=== PATIENT | male | born 1970 | race Caucasian/White ===

== ENCOUNTER 2016-09-01 10:30 | Emergency (ER) | payer BC ==
[2016-09-01 11:16] VITALS: BP 127/85
--- NOTE | 2016-09-01 12:56 | UC ---
Lower Extremity/Ankle HPI - HPI Summary HPI Summary: right ankle pain and foot pain x 4 days. Hx gout. Feels like it is the same. No injury. Tried ibuprofen with some relief. - History of Current Complaint Chief Complaint: UCLowerExtremity Stated Complaint: RIGHT ANKLE PAIN Time Seen by Provider: 09/01/16 12:54 Hx Obtained From: Patient Onset/Duration: Sudden Onset, Lasting Days, Still Present Severity Initially: Moderate Severity Currently: Moderate Pain Intensity: 8 Pain Scale Used: 0-10 Numeric Aggravating Factor(s): Standing, Ambulation Alleviating Factor(s): Nothing Able to Bear Weight: Yes - painful, using a cane Related History: Other - gout - Allergies/Home Medications Allergies/Adverse Reactions: Allergies Allergy/AdvReac Type Severity Reaction Status Date / Time No Known Allergies Allergy Verified 09/01/16 11:12 PMH/Surg Hx/FS Hx/Imm Hx Previously Healthy: No - gout Endocrine History Of: Reports: Dyslipidemia - Surgical History Surgical History: None - Family History Known Family History: Positive: Other - gout - Social History Occupation: Unemployed - applying for jobs Alcohol Use: None Substance Use Type: None Smoking Status (MU): Never Smoked Tobacco - Immunization History Most Recent Influenza Vaccination: March 2016 Review of Systems Constitutional: Negative Skin: Negative Eyes: Negative ENT: Negative Respiratory: Negative Cardiovascular: Negative Gastrointestinal: Negative Genitourinary: Negative Motor: Negative Neurovascular: Negative Musculoskeletal: Arthralgia Neurological: Negative Psychological: Negative All Other Systems Reviewed And Are Negative: Yes Physical Exam Triage Information Reviewed: Yes Appearance: Well-Appearing, Pain Distress, Obese Vital Signs: Initial Vital Signs Temp 98.8 F 09/01/16 11:09 Pulse 72 09/01/16 11:09 Resp 16 09/01/16 11:09 BP 127/85 09/01/16 11:09 Pulse Ox 98 09/01/16 11:09 Vital Signs Reviewed: Yes Eyes: Positive: Conjunctiva Clear ENT: Positive: Normal ENT inspection Neck: Positive: Supple, Nontender Respiratory: Positive: Chest non-tender, Lungs clear, Normal breath sounds, No respiratory distress Cardiovascular: Positive: RRR, No Murmur, Pulses Normal, Brisk Capillary Refill Musculoskeletal: Positive: Strength Intact, ROM Intact Neurological Exam: Normal Psychological Exam: Normal Skin Exam: Normal Lower Extremity Course/Dx - Course Course Of Treatment: will treat as gout. No need for xray. pt is agreeable. - Differential Dx/Diagnosis Differential Diagnosis/HQI/PQRI: Contusion, Fracture (Closed), Gout, Sprain, Strain Provider Diagnoses: acute gout right foot Discharge - Discharge Plan Condition: Stable Disposition: HOME Prescriptions: HYDROcodone/ACETAMIN 5-325 MG* [[place] 5-325 TAB*] 1 tab PO Q6H PRN #12 tab MDD 4 PRN Reason: Pain Indomethacin CAP* [Indocin CAP*] 50 mg PO TID PRN #30 cap PRN Reason: Pain Patient Education Materials: Gout (ED) Forms: *Gen. Provider Communication Referrals: Safia Vang MD [Primary Care Provider] -
== END 2016-09-01 13:14 | disposition home or self-care (01) ==
LOC: UCCORT 10:30
DX: M10.071 Idiopathic gout, right ankle and foot (principal); E78.5 Hyperlipidemia, unspecified; E66.9 Obesity, unspecified; Z68.32 Body mass index [BMI] 32.0-32.9, adult
CPT/HCPCS: 99212; G0463

== ENCOUNTER 2017-06-13 09:29 | Emergency (ER) | payer BC, OTHER ==
[2017-06-13 09:39] VITALS: BP 131/74
--- NOTE | 2017-06-13 09:58 | UC ---
Respiratory Complaint HPI - HPI Summary HPI Summary: one week of cough and nasal congestion - History of Current Complaint Chief Complaint: UCRespiratory Stated Complaint: COUGH Time Seen by Provider: 06/13/17 09:52 Hx Obtained From: Patient Onset/Duration: Sudden Onset, Lasting Days - 7-8 days, Still Present, Worse Since - getting worse daily Timing: Constant Severity Initially: Mild Severity Currently: Moderate Character: Cough: Productive Alleviating Factors: Nothing Associated Signs And Symptoms: Positive: Pleuritic Chest Pain, Nasal Congestion - Allergies/Home Medications Allergies/Adverse Reactions: Allergies Allergy/AdvReac Type Severity Reaction Status Date / Time No Known Allergies Allergy Verified 06/13/17 09:39 PMH/Surg Hx/FS Hx/Imm Hx Previously Healthy: No Endocrine History: Dyslipidemia - Surgical History Surgical History: None - Family History Known Family History: Positive: None, Other - gout - Social History 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[employer] Lives: With Family Alcohol Use: None Substance Use Type: None Smoking Status (MU): Never Smoked Tobacco - Immunization History Most Recent Influenza Vaccination: March 2016 Review of Systems Constitutional: Negative Skin: Negative Eyes: Negative ENT: Nasal Discharge, Sinus Congestion Respiratory: Cough Cardiovascular: Negative Gastrointestinal: Negative Genitourinary: Negative Motor: Negative Neurovascular: Negative Musculoskeletal: Negative Neurological: Negative Psychological: Negative Is Patient Immunocompromised?: No All Other Systems Reviewed And Are Negative: Yes Physical Exam Triage Information Reviewed: Yes Appearance: Well-Appearing, No Pain Distress, Well-Nourished Vital Signs: Initial Vital Signs Temp 98.1 F 06/13/17 09:35 Pulse 51 06/13/17 09:35 Resp 16 06/13/17 09:35 BP 131/74 06/13/17 09:35 Pulse Ox 100 06/13/17 09:35 Vital Signs Reviewed: Yes Eye Exam: Normal Eyes: Positive: Conjunctiva Clear ENT Exam: Normal ENT: Positive: Normal ENT inspection, Hearing grossly normal, Pharynx normal, Nasal congestion, Nasal drainage, TMs normal, Uvula midline. Negative: Tonsillar swelling, Tonsillar exudate, Trismus, Muffled voice, Hoarse voice, Dental tenderness, Sinus tenderness Dental Exam: Normal Neck exam: Normal Neck: Positive: Supple, Nontender, No Lymphadenopathy Respiratory Exam: Normal Respiratory: Positive: Chest non-tender, Lungs clear, Normal breath sounds, No respiratory distress Cardiovascular Exam: Normal Cardiovascular: Positive: RRR, No Murmur, Pulses Normal, Brisk Capillary Refill Musculoskeletal Exam: Normal Musculoskeletal: Positive: Strength Intact, ROM Intact, No Edema Neurological Exam: Normal Neurological: Positive: Alert, Muscle Tone Normal Psychological Exam: Normal Skin Exam: Normal UC Diagnostic Evaluation - Laboratory O2 Sat by Pulse Oximetry: 100 Respiratory Course/Dx - Course Course Of Treatment: Zithromax, albuterol, increase fluids, follow with pcp - Differential Dx/Diagnosis Provider Diagnoses: Acute cough, Bronchitis Discharge - Discharge Plan Condition: Stable Disposition: HOME Prescriptions: Albuterol HFA INHALER* [Ventolin HFA Inhaler*] 2 puff INH Q4H PRN #1 mdi PRN Reason: cough Azithromycin TAB* [Zithromax TAB (Z-MUMTAZ) 250 mg #6 tabs] 2 tab PO .TODAY, THEN 1 DAILY #1 mumtaz Patient Education Materials: Cold Symptoms (ED), Acute Cough (ED) Referrals: Safia Vang MD [Primary Care Provider] - If Needed
== END 2017-06-13 10:09 | disposition home or self-care (01) ==
LOC: UCCORT 09:29
DX: J20.9 Acute bronchitis, unspecified (principal); E78.5 Hyperlipidemia, unspecified; R05 Cough
CPT/HCPCS: 99212; G0463

== ENCOUNTER 2017-09-25 15:25 | Emergency (ER) | payer OTHER ==
[2017-09-25 16:43] VITALS: BP 128/70
--- NOTE | 2017-09-25 17:00 | UC ---
General HPI - HPI Summary HPI Summary: Pt presents to with2 complaints 1) left pain at base of thumb and lateral wrist. Pt states started Monday, increased Sun. Worse with movement. No edema, warmth, swelling. Pt took APAP yesterday with improvement. no analgesia today. no paresthesia, weakness. Pt RHD 2) lumbar discomfort Worse with movement, palpation. no paresthesia to legs. No changes bowel/bladder. Pt states sx started after shoveling snow. no analgesia today Pt's medications reviewed this visit - History of Current Complaint Chief Complaint: UCUpperExtremity Stated Complaint: RT HAND COMPLAINT, LOWER BACK PAIN Time Seen by Provider: 09/25/17 16:57 Onset/Duration: Gradual Onset Onset Severity: Mild Current Severity: Moderate Pain Intensity: 5 - Allergy/Home Medications Allergies/Adverse Reactions: Allergies Allergy/AdvReac Type Severity Reaction Status Date / Time No Known Allergies Allergy Verified 09/25/17 16:35 PMH/Surg Hx/FS Hx/Imm Hx Previously Healthy: Yes - Surgical History Surgical History: None - Family History Known Family History: Positive: None, Other - gout - Social History Occupation: Employed Full-time Lives: With Family Alcohol Use: Rare Substance Use Type: None Smoking Status (MU): Never Smoked Tobacco - Immunization History Most Recent Influenza Vaccination: March 2016 Review of Systems Motor: Other - lumbar back pain Musculoskeletal: Other: - right thumb, lumbar pain Neurological: Negative All Other Systems Reviewed And Are Negative: Yes Physical Exam Triage Information Reviewed: Yes Appearance: Well-Appearing, No Pain Distress, Well-Nourished Vital Signs: Initial Vital Signs Temp 98.6 F 09/25/17 16:37 Pulse 64 09/25/17 16:37 Resp 18 09/25/17 16:37 BP 128/70 09/25/17 16:37 Pulse Ox 99 09/25/17 16:37 Vital Signs Reviewed: Yes Eye Exam: Normal Eyes: Positive: Conjunctiva Clear ENT Exam: Normal ENT: Positive: Normal ENT inspection, Hearing grossly normal Neck exam: Normal Neck: Positive: Supple, Nontender, No Lymphadenopathy Respiratory Exam: Normal Respiratory: Positive: Chest non-tender, Lungs clear, Normal breath sounds, No respiratory distress, No accessory muscle use Cardiovascular Exam: Normal Cardiovascular: Positive: RRR, No Murmur Abdominal Exam: Normal Abdomen Description: Positive: Nontender, No Organomegaly, Soft Musculoskeletal: Positive: Other: - no pain c/t/l/s Full AROM c spine mild paraspinal pain lower lumbar area R>L + SLE b/l + flex/ext knee, ankle + great toe extension + flex/ext elbow + pronate/supinate mild discomfort base thumb no crepitus + flex/ext wrist Neurological: Positive: Other: - + thumb up, a ok, finger spreak, finger cross 5 /5 grasp Diagnostics - Radiology No standard instances Radiology Interpretation Completed By: Radiologist - Patient Name: GWENDOLYN MCGEE Medical Record#: [id number] Ordering Physician: Brittani Zepeda MD Acct.#: [id number] : 1970 Age: 46 Sex: M Location: [facility] Exam Date: 09/25/171704 ADM Status: REG ER Order Information: WRIST LEFT 3+ VWS Accession Number: [id number] CPT: 40219 Indication: Left thumb pain 3 views of the wrist demonstrates no fracture. No other bone or joint abnormality is identified. IMPRESSION: NO FRACTURE OF THE WRIST IS NOTED. <Electronically signed by Sherie Clark MD in OV> 09/25/171738 Dictated By: Sherie Clark MD Dictated Date/Time: 09/25/171738 Re-Evaluation - Re-Evaluation First Eval Comment: reviewed imaging with pt. splint for comfort. heat to back with stretching exercises. motrin.apap. pcp f/u Course/Dx - Course Course Of Treatment: pt with left wrist pain at abse of thumb and lumbar area after shoveling now. Pt neurologically intact. suspect related to exertion. Will check imaging thumb. motrin. heat. stretch. pcp f/u - Differential Dx - Multi-Symptom Provider Diagnoses: hand sprain. lumbar sprain Discharge - Discharge Plan Condition: Stable Disposition: HOME Patient Education Materials: Acute Low Back Pain (ED), Hand Sprain (ED) Forms: *Work Release Referrals: Safia Vang MD [Primary Care Provider] - Additional Instructions: - Alternate ibuprofen (Advil, Motrin) 600mg and Tylenol every 3 hours for pain or fever. Take with food. Do NOT take for more than 4-5 days. - To your back: apply moist heat. Once your muscles are warm, slow gente stretching exercises are important. Do this 2-3 times a day. If you develop and numbness or tingling in your legs or difficulty controlling your bowels or bladder you should go directly to the emergency department - For your hand - wear splint for comfort and support for the next 3-4 days. contact your doctor to schedule a follow-up appointment. Contact your doctor or return with questions or concerns
[2017-09-25] MEDS ORDERED: Ibuprofen TAB* 600 MG PO ONE (17:05)
--- NOTE | 2017-09-25 17:42 | RAD ---
Indication: Left thumb pain 3 views of the wrist demonstrates no fracture. No other bone or joint abnormality is identified. IMPRESSION: NO FRACTURE OF THE WRIST IS NOTED.
== END 2017-09-25 17:55 | disposition home or self-care (01) ==
LOC: UCCORT 15:25
DX: S63.92XA Sprain of unspecified part of left wrist and hand, initial encounter (principal); S33.5XXA Sprain of ligaments of lumbar spine, initial encounter; X58.XXXA Exposure to other specified factors, initial encounter; Y93.9 Activity, unspecified; Y92.9 Unspecified place or not applicable
CPT/HCPCS: 99213; A9270-GY; G0463

== ENCOUNTER 2018-07-08 11:25 | Emergency (ER) | payer OTHER ==
[2018-07-08 11:59] VITALS: BP 149/92
--- NOTE | 2018-07-08 12:12 | UC ---
Lower Extremity/Ankle HPI - HPI Summary HPI Summary: Started w/ L large toe pain, redness 4 days ago. Has had gout in the past and he feels this is the same. Has run out of his medication for gout as well. Pain w/ walking or putting on shoes. nothing makes it better, touching makes it worse. - History of Current Complaint Chief Complaint: UCLowerExtremity Stated Complaint: LEFT GREAT TOE PAIN Time Seen by Provider: 07/08/18 12:06 Hx Obtained From: Patient Onset/Duration: Sudden Onset Pain Intensity: 0 Able to Bear Weight: No - Risk Factors Gout Risk Factors: Age Over 40, Male - Allergies/Home Medications Allergies/Adverse Reactions: Allergies Allergy/AdvReac Type Severity Reaction Status Date / Time No Known Allergies Allergy Verified 07/08/18 11:59 PMH/Surg Hx/FS Hx/Imm Hx - Additional Past Medical History Additional PMH: hx of gout - Surgical History Surgical History: None - Family History Known Family History: Positive: None, Other - gout - Social History Alcohol Use: Rare Substance Use Type: None Smoking Status (MU): Never Smoked Tobacco - Immunization History Most Recent Influenza Vaccination: March 2016 Review of Systems All Other Systems Reviewed And Are Negative: Yes Constitutional: Positive: Negative Skin: Positive: Other - redness ta L toe Musculoskeletal: Positive: Arthralgia - L toe. 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 w/ a hx of gout. exam does show this is more than likely gout. will tx but strongly encouraged to be on medication from pcp to decrease amount of episodes. No other L foot issues. Blood pressure noted to be elevated likely to pain. - Differential Dx/Diagnosis Differential Diagnosis/HQI/PQRI: Arthritis, Bursitis, Contusion, Gout Provider Diagnosis: Gout attack Discharge - Sign-Out/Discharge Documenting (check all that apply): Patient Departure All imaging exams completed and their final reports reviewed: No Studies - Discharge Plan Condition: Good Disposition: HOME Prescriptions: Colchicine* [Colcrys*] 0.6 mg PO DAILY #10 tab Patient Education Materials: Gout (ED) Referrals: Safia Vang MD [Primary Care Provider] - Additional Instructions: please follow up w/ pcp to re-evaluate and get on regular medication. - Billing Disposition and Condition Condition: GOOD Disposition: Home
== END 2018-07-08 12:26 | disposition home or self-care (01) ==
LOC: UCCORT 11:25
DX: M10.9 Gout, unspecified (principal)
CPT/HCPCS: 99212; G0463